=== PATIENT | female | born 1955 | race Caucasian/White ===

== ENCOUNTER → 2018-11-22 | Outpatient (CLI) | payer BC ==
[~2018-11-22] MED LIST: REGADENOSON 0.4 MG/5 ML DISP.SYRIN. IV ONE
--- NOTE | 2018-11-22 15:51 | PCVCIMAG ---
APPROVED REPORT Imaging Protocol: Rest Tc-99m/Stress Tc-99m 1 day Study performed: 11/22/2018 13:42:44 Indication: Abn EKG, Pre Op Patient Location: Out-Patient Stress Nurse: Jesica Cole RN, WILMER Gonzalez Tech:Papi Estevez NMTCB Ht: 5 ft 5 in Wt: 170 lbs BSA: 1.85 m2 HR: 85 bpm BP: 140/72 mmHg BMI: 28.2 Rhythm: Sinus Rhythm, First Degree AV Block Medical History Medical History: Age, Hyperlipidemia Medications: ASA, Excedrin, Aldactone Allergies: Iodine, PCN Pretest Chest Pain Characteristics: No chest pain Exercise History: Sedentary Meds Held (24 hrs): Excedrin Resting Data Rest SPECT myocardial perfusion imaging was performed in supine position 45 minutes following the intravenous injection of 10.4 mCi of Tc-99m Sestamibi. Time of rest injection: 1315 Date: 11/22/2018 Administration Route: IV Administration Site: Right Wrist Pharmacologic Stress Pharmacologic stress test was performed by injecting Regadenoson 0.4 mg IV push over 10-15 seconds immediately followed by the intravenous injection of 35 mCi of Tc-99m Sestamibi. Time of stress injection: 1420 Date: 11/22/2018 Administration Route: IV Administration Site: Right Wrist Gated Stress SPECT was performed 45 minutes after stress injection. The images were gated to evaluate regional wall motion and calculate left ventricular ejection fraction. Stress Test Details Stress Test: Pharmacologic stress testing performed using 0.4 mg of regadenoson per 5 mL given IV over 10 seconds. Reason for pharmacologic stress test: Knee problems. HRMax Heart Rate (APMHR): 155 bpm Resting HR: 85 bpmTarget HR (85% APMHR): 131 bpm Max HR Achieved: 118 bpm % of APMHR: 76 Recovery HR: 104 bpm BP Resting BP: 140/72 mmHg Max BP: 137/65 mmHg Recovery BP: 153/73 mmHg ECG Resting ECG: Sinus Rhythm, First Degree AV Block Stress ECG: Sinus Tachycardia, First Degree AV Block Arrhythmia: None Recovery ECG: Sinus Tachycardia, First Degree AV Block Clinical Reason for Termination: Completed protocol Stress Symptoms: Abdominal Discomfort Exercise duration: min 55 sec Symptoms resolved during recovery. Stress ECG Conclusion 1. Adequate response to intravenous Lexiscan 2. Inadequate heart rate for ECG diagnosis Study Data Post stress, the left ventricular ejection was 70%.. SSS: 0 SRS: 5 SDS: 0 TID = 1.18. Perfusion There is a small area of moderately reduced uptake in the apical segment of the inferior and anterior wall which is seen on the stress images as well as the resting images. This area and is most consistent with attenuation artifact. Wall Motion Normal left ventricular wall motion. Nuclear Conclusion ECG Findings: non-diagnostic Clinical Findings: negative for ischemia Nuclear Findings: negative for ischemia Exercise Capacity: not assessed Left Ventricular Function: normal 1. Low risk study 2. Post exercise left ventricular ejection fraction 70% without wall motion abnormalities Interpreted by: Gris Abdullahi MD Electronically Approved: 11/22/2018 15:50:42 <Conclusion> 1. Adequate response to intravenous Lexiscan 2. Inadequate heart rate for ECG diagnosis
== END | disposition home or self-care (01) ==
LOC: PCVCIMAG 12:52
PROVIDERS: ATTEND Internal Medicine
DX: Z01.818 Encounter for other preprocedural examination (principal); R53.83 Other fatigue; R94.31 Abnormal electrocardiogram [ECG] [EKG]
CPT/HCPCS: 78452; 93017; A9500; J2785